=== PATIENT | male | born 1960 | race Caucasian/White ===

== ENCOUNTER 2016-11-23 08:13 | Day surgery (SDC) | payer BC ==
[2016-11-23 08:42] LABS: INR 1.58 (0.82-1.09); PROTHROMBIN TIME (PATIENT) 17.5 SEC (9.98-11.88)
[2016-11-23] MEDS ORDERED: LIDOCAINE HCL/PF 1% SDV 5ML VIAL ONE (08:50)
[2016-11-23] MEDS ORDERED: PROPOFOL 20 ML ONE ×3 (08:50)
[2016-11-23 09:00] VITALS: BMI 28.1
[2016-11-23 09:40] VITALS: TEMP 98.5
[2016-11-23 10:50] VITALS: BP 100/61; PULSE 58
--- NOTE | 2016-11-24 11:49 | PATH ---
Surgical Pathology Report Patient Name: GABRIELLE MAURER [facility]. Rec. #: [id number] /Age/Gender: 1960 (Age: 56) / M Account: [id number] Location: U-ENDOSCOPY Taken: 11/23/2016 Received: 11/23/2016 Reported: 11/24/2016 Physicians: Jacek Bro M.D. Specimen(s) Received BX SIGMOID Clinical History Followup diverticulitis Severe diverticulosis with mucosal petechiae, grade 2 inflamed hemorrhoids Final Diagnosis COLON, SIGMOID, BIOPSY: COLONIC MUCOSA WITH NO PATHOLOGIC CHANGES. NO ACTIVE COLITIS, ARCHITECTURAL DISTORTION, GRANULOMATA, OR DYSPLASIA IDENTIFIED. NO MICROSCOPIC COLITIS IDENTIFIED (NO LYMPHOCYTIC OR COLLAGENOUS COLITIS IDENTIFIED). Electronically Signed Rj Waldron M.D. Gross Description Received in formalin, labeled "biopsy sigmoid" is a silverman, irregular portion of soft tissue measuring 0.3 cm. in greatest dimension. The specimen is submitted in toto in one cassette. /11/23/2016 [facility]11/23/2016
== END 2016-11-23 10:50 | disposition home or self-care (01) ==
LOC: JASU-ENDO 08:13
PROVIDERS: ATTEND Internal Medicine Gastroenterology
PROC: 0DBN8ZX Excision of Sigmoid Colon, Via Natural or Artificial Opening Endoscopic, Diagnostic (ICD-10-PCS; principal; 2016-11-23 09:00)
DX: K57.30 Diverticulosis of large intestine without perforation or abscess without bleeding (principal); K64.8 Other hemorrhoids
CPT/HCPCS: 36415; 85610; 88305-TC

== ENCOUNTER 2019-05-12 07:08 | Day surgery (SDC) | payer OTHER ==
[2019-05-10 14:29] VITALS: BMI 27.9
[2019-05-12] MEDS ORDERED: MICROFIBRILLAR COLLAGEN 1 GM EACH ONE (07:25)
[2019-05-12] MEDS ORDERED: LIDOCAINE 1%-EPI 1:100,000 30 ML MDV IJ ONE (07:25)
[2019-05-12] MEDS ORDERED: ceFAZolin SODIUM 1 GM VIAL IVPB ONE (08:25)
--- NOTE | 2019-05-12 08:47 | HP ---
History & Physical Update - History History: No Change - Physical Physical: No Change - Assessment Assessment: No Change - Plan Plan: No Change (Full H&P in paper chart from 05/09/19)
[2019-05-12] MEDS ORDERED: fentaNYL CITRATE 250 MCG/5 ML VIAL ONE (09:15)
[2019-05-12] MEDS ORDERED: PROPOFOL 20 ML ONE ×3 (09:15)
[2019-05-12] MEDS ORDERED: SUCCINYLCHOLINE CHLORIDE 200 MG/10 ML SYRINGE ONE (09:15)
[2019-05-12] MEDS ORDERED: ePHEDrine SULFATE 50 MG/1 ML AMPULE ONE (09:47)
[2019-05-12] MEDS ORDERED: LIDOCAINE 1%/EPI 1:100000 (50 ML MULTI DOSE VIAL) INF ONE (10:19)
[2019-05-12] MEDS ORDERED: MICROFIBRILLAR COLLAGEN 1 GM EACH TP ONE (10:19)
--- NOTE | 2019-05-12 11:23 | OP ---
Operative Note - Note: Operative Date: 05/12/19 Pre-Operative Diagnosis: Thyroid nodule Operation: Left hemithryoidectomy Post-Operative Diagnosis: Same as Pre-op Surgeon: Pedro Cherry [employer] Ass[employer] Qa Lab Analyst: Tom Bar Anesthesiologist/FORENSIC ANALYST: Dawood Danielle Anesthesia: General Operative Report Dictated: Yes
--- NOTE | 2019-05-12 11:24 | SURG ---
Surgery Special Education Coordinator Note Special Education Coordinator: Tom Bar PA-C Date of Service: 05/12/19 Diagnosis: Left thyroid nodule Procedure: Left hemithyroidectomy I was present for the entirety of the operative procedure. For further detail, please refer to operative report. Visit type - Case Type Case Type: Scheduled - Emergency Emergency Visit: No - New patient This patient is new to me today: Yes Date on this admission: 05/12/19 - Critical Care Critical Care patient: No
[2019-05-12] MEDS ORDERED: oxyCODONE HCL 5 MG TABLET PO PRN (11:27)
[2019-05-12] MEDS ORDERED: ONDANSETRON 4 MG/2 ML VIAL IVPUSH PRN (11:27)
--- NOTE | 2019-05-12 11:41 | OP ---
DATE OF OPERATION: 05/12/2019 SURGICAL ATTENDING: Chelsi Jiménez MD [employer] ROLLER: Tom Bar PA-C PREOPERATIVE DIAGNOSIS: Left thyroid nodule. POSTOPERATIVE DIAGNOSIS: Left thyroid nodule. ANESTHESIA: General endotracheal. PROCEDURE: 1. Left hemithyroidectomy. 2. Parathyroid autotransplantation. 3. Neck ultrasound. DESCRIPTION OF PROCEDURE: The patient was taken into the operating room, placed in a supine position, endotracheally intubated. Neck ultrasound was performed showing a left thyroid nodule with no lymphadenopathy. Neck was then prepped and draped in the usual sterile fashion. Local anesthesia was administered and a 5-cm horizontal incision was made in a neck skin crease and carried down through subcutaneous tissues and platysma. Subplatysmal flaps were raised superiorly and inferiorly, and flap hooks were placed for exposure. The median raphe was incised and the left-sided strap muscles were elevated. The recurrent laryngeal nerve, superior laryngeal nerve, and superior parathyroid gland were preserved intact. The left inferior parathyroid gland could not be preserved intact, was therefore biopsied, proven to be parathyroid tissue, and reimplanted in 2 pieces into the left sternocleidomastoid muscle, marked with Prolene sutures. The superior, posterior, and inferior attachments of the thyroid lobe were transected. The thyroid was then lifted off of the trachea. The isthmus was transected. The pyramidal lobe was also included. In this was the left thyroid lobe was removed. It was checked for parathyroid tissue and none was found. It was then sent to pathology for further evaluation. Hemostasis was achieved with electrocautery and Avitene. The nerve monitoring system was used, and the nerve was intact at the conclusion of procedure. The left inferior parathyroid gland was bisected into 2 pieces and minced. It was then placed into 2 pockets in the left sternocleidomastoid muscle and marked and closed with Prolene sutures. The wound was then closed in 3 layers. Dermabond was placed. The patient then awakened, extubated, and taken to recovery in stable condition. Dr. Jiménez, the attending surgeon, was present throughout the entire procedure. CHELSI JIMÉNEZ M.D. [id number]
[2019-05-12 13:53] VITALS: PULSE 59
[2019-05-12 14:50] VITALS: BP 116/76; TEMP 98
--- NOTE | 2019-05-18 11:14 | PATH ---
Surgical Pathology Report Patient Name: GABRIELLE MAURER [facility]. Rec. #: [id number] /Age/Gender: 1960 (Age: 58) / M Account: [id number] Location: [facility] Taken: 05/12/2019 Received: 05/12/2019 Reported: 05/18/2019 Physicians: Pedro Cherry M.D. Specimen(s) Received A: LEFT INFERIOR PARATHYROID B: LEFT THYROID Clinical History Left thyroid nodule Intraoperative Consult Diagnosis Left inferior parathyroid biopsy, FS: Portion of parathyroid tissue Dr. Oshea, 05/13/19. Final Diagnosis A. LEFT INFERIOR PARATHYROID, BIOPSY (FS): PORTION OF BENIGN PARATHYROID TISSUE. B. LEFT THYROID LOBE, LOBECTOMY: THYROID TISSUE WITH FOLLICULAR ADENOMA. Electronically Signed Eldon Oshea M.D. Gross Description A. Received fresh for immediate intraoperative consultation labeled "left inferior parathyroid biopsy" is an irregular fragment of silverman soft tissue measuring 0.5 x 0.3 x 0.2 cm. The entire specimen is submitted for frozen section analysis in one cassette, FSA1. B. Received in formalin labeled "left thyroid lobe'" is a 30 g thyroid tissue which measures 5 x 3 x 2 cm. Outer surface of the specimen is inked in black. Specimen is serially sectioned from superior to inferior. Cut section shows a 2.2 x 2 x 1.5 cm, silverman, fleshy, well-circumscribed nodule with central area of hemorrhage, 1 cm from superior pole. Remainder of the thyroid is red-silverman and beefy. The entire specimen is submitted in 12 cassettes as follows: 1-5 nodule, 6-12 remainder of thyroid. MLSZ/05/13/2019 [place]/05/13/2019
== END 2019-05-12 14:40 | disposition home or self-care (01) ==
LOC: JASU-SURG 07:08
PROVIDERS: ATTEND Surgery
PROC: 0GTG0ZZ Resection of Left Thyroid Gland Lobe, Open Approach (ICD-10-PCS; principal; 2019-05-12 08:30)
DX: E04.1 Nontoxic single thyroid nodule (principal); D34 Benign neoplasm of thyroid gland
CPT/HCPCS: 88305-TC; 88307-TC; 88331-TC; 94760